=== PATIENT | male | born 1960 | race Caucasian/White ===

== ENCOUNTER → 2021-05-22 12:23 | Outpatient (CLI) | payer OTHER, SELFPAY ==
--- NOTE | 2021-05-22 12:26 | CT_ITS ---
PROCEDURE: CT CHEST WO CON CLINICAL INDICATION: OTHER FATIGUE Dyspnea, smoker COMPARISON: No exams were available for comparison TECHNIQUE: Axial images obtained with sagittal and coronal reformats. All CT scans at the facility use one or more dose reduction, viz: automated exposure control, ma/kV adjustment per patient size (including targeted exams where dose is matched to indication, i.e. head), or iterative reconstruction technique. FINDINGS: HEART AND MEDIASTINAL STRUCTURES: There are coronary artery calcifications and aortic valve calcifications. There is very minimal thickening of the pericardium anteriorly. No mediastinal or hilar mass or adenopathy. Mild nonspecific thickening of this distal esophagus and GE junction. LUNGS AND PLEURAL SPACES: COPD changes with hyperinflation and attenuation of the peripheral pulmonary vessels. No suspicious nodules. No infiltrates or effusions. BONY STRUCTURES: Mild degenerative changes midthoracic spine. UPPER ABDOMEN: Multiple hepatic hypodensities are present the largest in the left hepatic lobe at 10 mm. There is a 5 mm hypodensity left hepatic lobe laterally. The other hypodensities are 1-3 mm. These could be due to hepatic cysts or hemangiomas. ADDITIONAL FINDINGS: Mild dilatation of the mid abdominal aorta at 3 cm. The abdominal aorta is incompletely imaged. IMPRESSION: 1. Coronary artery calcifications and aortic valve calcification. 2. COPD. No pulmonary nodules, infiltrates or effusions apparent. 3. Multiple small hepatic hypodense lesions the largest in the left hepatic lobe at 10 mm. These may be due to small cysts and/or hemangiomas. Suggest CT abdomen with hemangioma protocol without and with contrast 4. Dilatation of the mid abdominal aorta at 3 cm. The aorta is incompletely imaged and could also be evaluated with follow-up CT of the abdomen. Dictated by: Pj Whitlock MD 05/23/2021 09:11 Pj Whitlock MD in [facility] 05/23/2021 09:11
== END ==
PROVIDERS: PCP Nurse Practitioner Family; Visit Provider Nurse Practitioner Family
DX: R53.83 Other fatigue (principal); Z72.0 Tobacco use
CPT/HCPCS: 71250

== ENCOUNTER → 2021-06-23 08:12 | Outpatient (CLI) | payer OTHER, SELFPAY ==
--- NOTE | 2021-06-23 08:23 | CT_ITS ---
PROCEDURE: CT ABDOMEN PELVIS WO/W CON CLINICAL INDICATION: HEMANGIOMA OF INTRA ABD STRUCTURES COMPARISON: CT CT CHEST WO CON from 05/22/2021 TECHNIQUE: IV Contrast: 75ML Isovue 370. Pre and post enhanced dynamic images are obtained. Oral Contrast None Axial images obtained with sagittal and coronal reformats. All CT scans at the facility use one or more dose reduction, viz: automated exposure control, ma/kV adjustment per patient size (including targeted exams where dose is matched to indication, i.e. head), or iterative reconstruction technique. FINDINGS: Multiple small hepatic hypodensities are present. Largest is in the left hepatic lobe segment 4A measuring 12 mm. These do not demonstrate enhancement patterns hemangiomas and likely related to cysts. No enhancing lesions are evident. There are 2 small hypodensities of the spleen 1 medially at 3 mm in 1 laterally at 4 mm and may be due to small cyst or hemangiomas. These are too small to categorize. The adrenal glands, pancreas, and kidneys have an unremarkable appearance. There is a moderate amount of plaque within the abdominal aorta inferior to the level of the renal arteries with mild dilatation of the aorta at 3 cm transverse and 3.2 cm AP. Along the left side of the abdominal aorta at the L3 level there is a small focal protrusion which measures 7 mm transverse suggesting a small thrombosed saccular aneurysm. This could also be related to sub adjacent lymph node. Continued follow-up suggested to confirm stability. There is occlusion of the left common iliac artery with reconstitution of the left external iliac artery distally and the left internal iliac artery in its mid aspect. There is dilatation of the proximal aspect of the right common iliac artery at 1.7 cm. No evidence of retroperitoneal hemorrhage. No intestinal obstruction or free air. There is colonic diverticulosis. No evidence of diverticulitis. The prostate is enlarged at 5.9 x 4 cm. Prior appendectomy. No acute bony anomaly. IMPRESSION: 1. Multiple hepatic hypodensities without enhancement consistent with cysts with at least 2 small hypodensities of the spleen 3 and 4 mm too small to categorize and also may be due to cysts or small hemangiomas.. 2. Mild fusiform dilatation of the infrarenal abdominal aorta up to 3.2 cm with moderate amount of mural thrombus. Possible small saccular component of the aneurysm noted at L3 versus overlying sub adjacent lymph node. 3. Occluded left common iliac artery with reconstitution of the distal aspect of the left external iliac artery and mid left internal iliac artery. Dictated by: Pj Whitlock MD 06/24/2021 06:19 Pj Whitlock MD in [facility] 06/24/2021 06:19
[2021-06-23 08:59] LABS: Blood Urea Nitrogen 14 mg/dl (9-20); Estimated Glomerular Filt Rate 76 ml/min (>60); GFR (African American) 92 ML/MIN (>60)
== END ==
PROVIDERS: PCP Nurse Practitioner Family; Visit Provider Nurse Practitioner Family
DX: D18.03 Hemangioma of intra-abdominal structures (principal)
CPT/HCPCS: 36415; 74178; 82565; 84520; Q9967

== ENCOUNTER → 2021-08-19 08:53 | Outpatient (CLI) | payer OTHER, SELFPAY ==
--- NOTE | 2021-08-19 08:57 | CA_ITS ---
APPROVED REPORT Professional Architect: WOLF Laterality: Bilateral Study Quality: Good, Due to Patient movement. Risk Factors Hypertension: Hyperlipidemia Smoking Doppler Spectral Velocity Analysis ECA (R) 124.20/22.30 cm/s ECA (L) 140.50/30.00 cm/s dICA (R) 56.50/19.70 cm/s dICA (L) 103.30/34.40 cm/s Louann (R) 72.00/18.80 cm/s Louann (L) 111.70/35.30 cm/s pICA (R) 112.20/19.70 cm/s pICA (L) 87.30/29.50 cm/s dCCA (R) 90.00/24.00 cm/s dCCA (L) 85.70/19.70 cm/s pCCA (R) 98.50/20.60 cm/s pCCA (L) 110.50/22.30 cm/s Vert (R) 63.40/15.40 cm/s Vert (L) 50.10/15.70 cm/s ICA/CCA 1.25 ICA/CCA 1.30 Findings Duplex evaluation demonstrates antegrade flow of the bilateral Vertebral Arteries. Duplex evaluation demonstrates stenosis of the right proximal internal carotid artery <20% with PSV <140 cm/sec, EDV <100 cm/sec, and IC/CC Ratio <4.0. Duplex evaluation demonstrates stenosis of the left proximal internal carotid artery <20% with PSV <140 cm/sec, EDV <100 cm/sec, and IC/CC Ratio <4.0. Conclusion Duplex evaluation demonstrates antegrade flow of the bilateral Vertebral Arteries. Duplex evaluation demonstrates stenosis of the right proximal internal carotid artery <20% with PSV <140 cm/sec, EDV <100 cm/sec, and IC/CC Ratio <4.0. Duplex evaluation demonstrates stenosis of the left proximal internal carotid artery <20% with PSV <140 cm/sec, EDV <100 cm/sec, and IC/CC Ratio <4.0. Electronically signed by : Pj Whitlock MD 08/19/2021 18:29:42
--- NOTE | 2021-08-19 08:57 | CA_ITS ---
APPROVED REPORT EXAM: Comprehensive 2D, Doppler, and color-flow Echocardiogram Collector Of Internal Revenue: Janae Ocampo, KERI, RVS Ht: 5 ft 8 in Wt: 185lbs BSA: 1.98 HR: 73 bpm BP: 150/80 mmHg Indications: Smoker, HTN, HLD, Fatigue, dizziness, abn chest CT, New MÉNDEZ 2D Dimensions IVSd 1.16 cm LVEF (Visual) 30.00 % PWd 0.78 cm LA Volume 46.70 mL LVDd 7.61 cm LA Volume Index 23.70 mL/m2 (M/F) 16-34 LVDs 7.41 cm Aortic Root 3.03 cm Left Atrium 3.31 cm LVOT 2.19 cm (M/F) 1.5-2.5 M-Mode Dimensions LA Diam 3.62 cm (1.9-4.0) LVDd 7.74 cm (3.5-5.7) Ao Diam 3.37 cm (2.0-3.7) LVDs 6.29 cm (3.5-5.7) EF (Teich) 37.40% EPSs 4.77 cm FS 18.70% EDV (Teich) 320.10 mL TAPSE 2.10 (<1.7) ESV (Teich) 200.50 mL LV Diastology E Decel Time 333.00 (160-240 msec) E/A Ratio 0.47 MED E' 3.90 (< 7 cm/sec) MED A' 6.80 cm/s E'/MED E' Ratio 12.28 (>14) LAT E' 4.00 (<10 cm/sec) LAT A' 8.30 cm/s E/LAT E' Ratio 11.97 (>14) Aortic Valve LVOT Max 76.00 (70-110 cm/s) LVOT VTI 12.03 cm AoV [place]. 232.00 (50-130 cm/s) AO Peak GR. 21.60 mmHg AO Mean GR. 10.30 (<5 mmHg) AO VTI 38.57 (18-25 cm) SERVANDO (VTI) 1.17 (2.5-4.5 cm2) Mitral Valve MV A Velocity 101.00 (40-130 cm/s) E/A Ratio 0.47 MV Decel. Time 333.00 (160-240 ms) Tricuspid Valve TR P. Velocity 169.00 cm/s RAP Estimate 10.00 mmHg RVSP 21.40 mmHg Left Ventricle Left atrium is mildly enlarged, left ventricle is moderately dilated, severe reduced left ventricular systolic function, visually estimated ejection fraction approximately 30%, there is marked hypo to akinesis involving the basal septum, inferior basal and inferior wall. Grade 1 diastolic dysfunction seen with tissue Doppler evidence of raise left atrial pressure. Right Ventricle Right atrium and right ventricle are normal size and contractility. Aortic Valve Aortic valve is thickened and calcified, based on Doppler velocities aortic stenosis is likely mild. There is no significant aortic insufficiency. Mitral Valve Mitral inflow velocity within normal range, there is no mitral stenosis, there is mild mitral regurgitation. Tricuspid Valve Tricuspid valve grossly normal, there is mild tricuspid regurgitation, tricuspid regurgitation jet velocity is inadequate for calculation of the right ventricular systolic pressure. Pulmonic Valve Pulmonic valve is poorly visualized. Great Vessels Aortic root is normal size. Inferior vena cava is normal size with normal inspiratory collapse. Pericardium No significant pericardial effusion noted. Conclusion 1. Mildly enlarged left atrium, dilated left ventricle, severely reduced left ventricular systolic function, visually estimated ejection fraction 30% with multiple segmental wall motion abnormality described above. Grade 1 diastolic dysfunction seen with tissue Doppler evidence of raise left atrial pressure. 2. Thickened and calcified aortic valve with likely mild aortic stenosis 3. Mild mitral and tricuspid regurgitation. 4. Inferior vena cava is normal size with normal inspiratory collapse. Electronically signed by : Cipriano Whitehead MD 08/20/2021 13:25:07
[2021-08-19 15:39] LABS: Chloride 104 mmol/L (98-107); Sodium 140 mmol/L (136-145)
[2021-08-19 15:40] LABS: Potassium 4.3 mmoL/L (3.5-5.1)
[2021-08-19 15:42] LABS: Blood Urea Nitrogen 12 mg/dl (9-20); Estimated Glomerular Filt Rate 86 ml/min (>60); GFR (African American) 103 ML/MIN (>60)
[2021-08-19 15:43] LABS: Anion Gap 10.3 mEq/L (5-15); Basophils # 0.1 K/mm3 (0-0.2); Basophils % 0.7 % (0.1-2.0); Carbon Dioxide 30 mmol/L (22.0-30.0); Eosinophils # 0.2 K/mm3 (0.0-0.4); Eosinophils % 1.6 % (0.1-12.0); Glucose 92 mg/dl (74-100); Hematocrit 52.4 % (42.0-52.0); Lymphocytes # 2.8 K/mm3 (0.7-4.5); Lymphocytes % 26.5 % (10-50); Mean Corpuscular HGB Conc 32.4 g/dL (31.8-35.4); Mean Corpuscular Hemoglobin 29.9 pg (27.0-31.2); Mean Corpuscular Volume 92.3 fl (80-94); Mean Platelet Volume 9.5 fl (7.4-10.4); Monocytes # 0.8 K/mm3 (0.1-1.0); Monocytes % 7.2 % (1.7-9.3); Neutrophils # 6.8 K/mm3 (1.8-7.8); Platelet Count 366 K/mm3 (142-424); Red Blood Count 5.67 M/mm3 (4.60-6.20); Red Cell Distribution Width 15.6 % (11.5-17.5); White Blood Count 10.6 K/mm3 (4.8-10.8)
== END ==
PROVIDERS: Urology; PCP Nurse Practitioner Family; Visit Provider Nurse Practitioner Family
DX: Z01.812 Encounter for preprocedural laboratory examination (principal); Z11.52 Encounter for screening for COVID-19; R42 Dizziness and giddiness; I25.10 Atherosclerotic heart disease of native coronary artery without angina pectoris; I10 Essential (primary) hypertension; M79.10 Myalgia, unspecified site; R53.83 Other fatigue
CPT/HCPCS: 36415; 80048; 85025; 93306; 93880; C9803; U0003; U0005

== ENCOUNTER → 2021-08-19 14:56 | Outpatient (CLI) | payer OTHER, SELFPAY | PROVIDERS: Visit Provider Urology | DX: Z20.822 Contact with and (suspected) exposure to COVID-19 (principal) | CPT/HCPCS: 36415; 80048; 85025; C9803; U0003; U0005 ==

== ENCOUNTER 2021-08-20 09:48 | Day surgery (SDC) | payer OTHER, SELFPAY ==
[2021-08-20] VITALS (22 sets, daily range): BP systolic 100–151; BP diastolic 58–105; PULSE 60–90; RESP 13–92; O2SAT 91–97; BMI 27.8
--- NOTE | 2021-08-20 | IR_ITS ---
APPROVED REPORT Patient Location: Outpatient PROCEDURES Left heart catheterization Left ventriculogram Selective coronary angiogram Left femoral arterial access Catheter placed in the abdominal aorta Abdominal aortography with bilateral iliofemoral angiography Attempted angioplasty of the left chronically occluded common iliac artery INDICATION Ischemic cardiomyopathy, Systolic congestive heart failure ejection fraction 25%, Occluded left common iliac artery, Peripheral artery disease, No abdominal aortic aneurysm Informed consent was obtained prior to the procedure. COMPLICATIONS NONE Estimated Blood Loss: LESS THAN 10 ML TECHNIQUE 1% lidocaine used anesthetize right groin the right coronary successfully the center technique and a 4 Israeli sheath this patient right femoral artery. A catheter cannot easily traverse the iliofemoral vessels therefore an advantage wire and the JR4 catheter used to negotiate through the aneurysmal stenotic dilatation. Angiography was performed in the common iliac artery. Following this a JL4 JR4 catheter used to perform left heart catheterization left ventriculogram and selective coronary angiogram. A wire exchange was used in between the JR4 and the JL4. At the end of the diagnostic heart cath the wire was placed back in the abdominal aorta and a pigtail catheter was advanced. Abdominal aortography with iliofemoral angiography was performed. Following this the left femoral artery was accessed via the Salinger technique and a JR4 catheter was advanced through the occlusion into the ostial segment of the left common iliac artery. After the wire would not easily reenter the lumen the 4 Israeli sheath in the right groin was upsized to a 5 Israeli sheath and a Sos Omni catheter was placed in abdominal aorta and attempts were made to push through the occlusion. After several minutes it was decided this vessel was 2 high risk and complex to proceed with percutaneous intervention especially in the setting of his decompensated heart condition. At this point it was abandoned the apparatus was removed good hemostasis was achieved using manual pressure in the left groin and the patient transfer the postop putting a stable addition for arterial sheath removal ANGIOGRAPHIC RESULTS The left main artery Normal The left anterior descending artery Has proximal long 30% stenoses with the remaining LAD being large and wrapping the apex The circumflex artery Is nondominant and proximally occluded and fills via a large Kugel collateral from the right coronary artery as well as collaterals from the LAD The right coronary artery Is dominant and proximally occluded. The distal vessel fills via right to right collaterals however the posterior descending artery fills via left to right collaterals from the LAD. A large proximal Kugel collateral supplies flow to the circumflex artery The PORRAS ventriculogram reveals Severely dilated ejection fraction 2025% The left ventricular end-diastolic pressure 30 mmHg The infrarenal abdominal aorta is aneurysmal and severely atheromatous The right common iliac artery has an ostial 80% stenosis followed by an aneurysmal dilatation with diffuse atheromatous plaque Left common iliac artery is ostially occluded and fills via large collaterals which collateralized through the left external iliac artery IMPRESSION Coronary disease as described above Severe LV dysfunction Elevated LVEDP Aortoiliac disease as described above PLAN 1. At this time I do not recommend surgery or percutaneous intervention for the heart. Patient is nicely collateralized in the LAD most importantly is minimally diseased. 2. Maximize medical management and provide standar
--- NOTE | 2021-08-20 14:06 | SW/DCPLANNER ---
I have provided heart cath staff (Kayleigh/Jaja) with information regarding [facility] once patient is medically stable to discharge home. Jaja has stated that she will arrange this once patient is ready.
== END 2021-08-20 16:07 | disposition home or self-care (01) ==
LOC: CATHLAB 09:50 → 2ND 09:54
PROVIDERS: PCP Nurse Practitioner Family; Visit Provider Internal Medicine
DX: I25.5 Ischemic cardiomyopathy (principal); I77.1 Stricture of artery; I42.0 Dilated cardiomyopathy; I35.9 Nonrheumatic aortic valve disorder, unspecified; I25.10 Atherosclerotic heart disease of native coronary artery without angina pectoris; I25.84 Coronary atherosclerosis due to calcified coronary lesion; I71.4 Abdominal aortic aneurysm, without rupture; F17.210 Nicotine dependence, cigarettes, uncomplicated; Z79.899 Other long term (current) drug therapy; I74.5 Embolism and thrombosis of iliac artery; I24.0 Acute coronary thrombosis not resulting in myocardial infarction; I50.23 Acute on chronic systolic (congestive) heart failure
CPT/HCPCS: 36246; 75625; 75716; 93458; 99152; 99153; C1725; C1769; C1894; J1644; Q9966; Q9967

== ENCOUNTER → 2023-05-17 07:45 | Outpatient (CLI) | payer OTHER, SELFPAY | PROVIDERS: PCP Nurse Practitioner Family; Visit Provider Nurse Practitioner Family | DX: R06.00 Dyspnea, unspecified (principal); I25.10 Atherosclerotic heart disease of native coronary artery without angina pectoris; I25.5 Ischemic cardiomyopathy; I35.0 Nonrheumatic aortic (valve) stenosis; I42.0 Dilated cardiomyopathy; I50.22 Chronic systolic (congestive) heart failure; I65.23 Occlusion and stenosis of bilateral carotid arteries; I73.9 Peripheral vascular disease, unspecified; Z72.0 Tobacco use | CPT/HCPCS: 93306 ==

== ENCOUNTER 2023-06-22 16:02 | Observation (INO) | payer OTHER, SELFPAY ==
[2023-06-22] VITALS (20 sets, daily range): BP systolic 95–200; BP diastolic 60–117; PULSE 57–115; RESP 16–21; TEMP 36.4–36.8; O2SAT 95–100; BMI 29.3; BMI 28.4
--- NOTE | 2023-06-22 07:14 | IR_ITS ---
APPROVED REPORT Patient Location: Outpatient PROCEDURES Selective coronary angiogram Drug-eluting stent deployment to the proximal LAD Intravascular ultrasound the proximal ID INDICATION Ischemic cardiomyopathy, New onset angina pectoris, Complex IVUS guided percutaneous intervention, Informed consent was obtained prior to the procedure. COMPLICATIONS NONE Estimated Blood Loss: LESS THAN 10 ML TECHNIQUE One percent lidocaine used to anesthetize the right anterior aspect of the wrist. The right radial artery was accessed via the Seldinger technique. A 6 Kittitian sheath was placed in the right radial artery. 2.5 mg of Verapamil, 800 mcg of nitroglycerin, 1mg Lidocaine and 5000 U Heparin were given through the arterial sheath. The papa catheter was also used to perform selective coronary angiogram. At the end of the diagnostic cardiac catheterization therapeutic heparin was administered giving a therapeutic ACT and the guide catheter was placed in left main artery followed by Choice PT extra-support wire being placed on the LAD. A 3.5 x 26 mm [place] frontier stent was deployed at 20 chapis reducing the stenosis to 0% by angiography. Because this was a complex angiogram and there is a mortality benefit with IVUS guidance it was decided to perform intravascular ultrasound. Intravascular ultrasound was advanced which demonstrated nice apposition of the stent to the plaque however the proximal and midportion of the stent was slightly under dilated. Because of this a 4 mm x 12 mm noncompliant balloon was placed in the proximal and midportion and deployed at 24 chapis to post dilate. TONIA-3 flow was present before and after the procedure. At the end the procedure the apparatus was removed the sheath was removed good hemostasis was achieved using TR banding patient was transferred to the postop putting in stable ANGIOGRAPHIC RESULTS The left main artery Normal The left anterior descending artery Proximal 50 to 60% eccentric calcified stenosis. The remaining LAD is widely patent free of disease and wraps the apex The circumflex artery Is nondominant and proximally occluded. A first second and third obtuse marginal artery is collateralized from both the LAD and from a right coronary artery Kugel collateral. The right coronary artery Is a nondominant vessel and proximally subtotally occluded. Bridging collaterals supply the distal right coronary artery. A Kugel collateral supplies the terminal obtuse marginal artery off the circumflex artery The PORRAS ventriculogram reveals Not performed The left ventricular end-diastolic pressure Not measured IMPRESSION Severe stenosis in the proximal LAD which was equivalent to a left main artery stenosis based on the collateralization to the circumflex artery Successful stenting of the proximal LAD severe disease reduced to 0% with 1 drug-eluting stent Chronically occluded circumflex artery and right coronary as described above PLAN 1. Dual antiplatelet therapy 2. Standard therapy for systolic heart failure 3. LDL less than 55 to be achieved with high intensity statin 4. Avoidance of tobacco products 5. Risk factor modification 6. Cardiac rehabilitation Electronically signed by : James Doe MD 06/22/2023 13:59:06
[2023-06-22 10:36] LABS: Basophils # 0.1 K/mm3 (0-0.2); Basophils % 0.6 % (0.1-2.0); Eosinophils # 0.2 K/mm3 (0.0-0.4); Eosinophils % 2.4 % (0.1-12.0); Hematocrit 56.4 % (42.0-52.0); Lymphocytes % 24.2 % (10-50); Mean Corpuscular HGB Conc 31.9 g/dL (31.8-35.4); Mean Corpuscular Hemoglobin 28.8 pg (27.0-31.2); Mean Corpuscular Volume 90.4 fl (80-94); Mean Platelet Volume 9.3 fl (7.4-10.4); Monocytes # 0.5 K/mm3 (0.1-1.0); Neutrophils # 5.6 K/mm3 (1.8-7.8); Neutrophils % 66.9 % (37.0-80.0); Platelet Count 441 K/mm3 (142-424); Red Blood Count 6.24 M/mm3 (4.60-6.20); Red Cell Distribution Width 15.1 % (11.5-17.5); White Blood Count 8.3 K/mm3 (4.8-10.8)
[2023-06-22 10:44] LABS: Chloride 106 mmol/L (98-107); Potassium 4.1 mmoL/L (3.5-5.1); Sodium 142 mmol/L (136-145)
[2023-06-22 10:47] LABS: Blood Urea Nitrogen 19 mg/dl (9-20); Creatinine Clearance Estimated 92 mL/min (50-200); Estimated Glomerular Filt Rate 75 ml/min (>60); GFR (African American) 91 ML/MIN (>60)
[2023-06-22 10:48] LABS: Anion Gap 14.1 mEq/L (5-15); Calcium 10.5 mg/dl (8.4-10.2); Carbon Dioxide 26 mmol/L (22.0-30.0); Glucose 100 mg/dl (74-100)
--- NOTE | 2023-06-22 15:11 | HMH.PHACL ---
PHA Family Development Extension Specialist Discharge Med Deburring And Tooling Machine Operator: Nathan Post has received discharge medication counseling on the following medications: -ASPIRIN (ON PREVIOUSLY, NO QUESTIONS) -ATORVASTATIN (ON PREVIOUSLY, NO QUESTIONS) -CARVEDILOL (ON PREVIOUSLY, NO QUESTIONS) -ENTRESTO (ON PREVIOUSLY, NO QUESTIONS) -BRILINTA (BLOOD THINNER, TWICE DAILY, SOB POSSIBLE, BLEED/BRUISE RISK, BLEED LOCATION/APPEARANCE, BUMP HEAD = GO TO ER TO RULE OUT BLEED) PATIENT VERBALIZED NO QUESTIONS AT THIS TIME.
[2023-06-22 15:30] LABS: CATHL Activated Clotting Time 360 SEC (74-125)
--- NOTE | 2023-06-22 16:06 | EXP.HP ---
History of Present Illness *Admission Date: 06/22/23 *Reason for visit:: shortness of breath *History of present illness: Mr. Post is a 62 year old male with a past medical history of AAA, aortic stenosis, carotid artery stenosis, cad, PAD, diastolic chf, htn and hld. He had an outpatient left heart catheterization today which revealed severe stenosis in the proximal LAD and chronically occluded circumflex and right coronary arteries. One drug eluting stent was placed in the proximal LAD. The patient was given Brilinta and subsequently developed shortness of breath but SpO2 has been within normal limits on room air. He denies chest pain. ANGIOGRAPHIC RESULTS The left main artery Normal The left anterior descending artery Proximal 50 to 60% eccentric calcified stenosis. The remaining LAD is widely patent free of disease and wraps the apex The circumflex artery Is nondominant and proximally occluded. A first second and third obtuse marginal artery is collateralized from both the LAD and from a right coronary artery Kugel collateral. The right coronary artery Is a nondominant vessel and proximally subtotally occluded. Bridging collaterals supply the distal right coronary artery. A Kugel collateral supplies the terminal obtuse marginal artery off the circumflex artery The PORRAS ventriculogram reveals Not performed The left ventricular end-diastolic pressure Not measured IMPRESSION Severe stenosis in the proximal LAD which was equivalent to a left main artery stenosis based on the collateralization to the circumflex artery Successful stenting of the proximal LAD severe disease reduced to 0% with 1 drug-eluting stent Chronically occluded circumflex artery and right coronary as described above [facility] Disclaimer: The information contained in this section may have been updated after the patient was seen, as this information can be updated by other users. Medical History Abdominal aortic aneurysm (AAA) 3.0 cm to 5.5 cm in diameter in male Aortic stenosis Aortic valve calcification Carotid artery stenosis Congestive heart failure Coronary artery calcification Coronary artery disease Diastolic dysfunction Dilated cardiomyopathy Dyspnea Hyperlipidemia Hypertension Ischemic cardiomyopathy PAD (peripheral artery disease) Occluded left common iliac artery with reconstitution of the distal aspect of the left external iliac artery and mid left internal iliac artery. He was told this would be best managed medically. Restless sleeper Snoring Family History (Updated 06/22/23 @ 16:54 by Jen Paula RN) Other No significant family history Social History (Updated 06/22/23 @ 16:22 by Renita Cordon RN) Smoking Status: Current every day smoker tobacco type: cigarettes packs per day: 1 second hand exposure: Yes alcohol intake: never substance use type: denies use current occupational status: unemployed and retired Travel in the last 8 weeks: Inside the [place] household members: spouse housing: house number of children: 1 current occupational exposures/hazards: No caffeine: No Review of Systems Review of Systems Review of systems:: pertinent systems reviewed and negative unless documented below *Cardiovascular Cardiovascular: Reports dyspnea *Respiratory Respiratory: Reports dyspnea Psychiatric Psychiatric: Reports anxiety Meds Home Medications and Allergies Home Medications Medication Instructions Recorded Confirmed Type aspirin 81 mg chewable tablet 81 mg PO DAILY heart #30 tabs 04/08/22 06/22/23 Rx atorvastatin 20 mg tablet See Rx Instructions .Route 06/22/23 06/22/23 History .COMPLEX cholesterol carvedilol 6.25 mg tablet (Coreg) 6.25 mg PO BID HTN 06/22/23 06/22/23 History clopidogrel 75 mg tablet 75 mg PO DAILY #30 tabs 06/22/23 Rx empagliflozin 10 mg tablet 10 mg PO DAILY antidiabetic 06/22/23 06/22/23 History (Vu
--- NOTE | 2023-06-22 16:39 | PC.NURSE ---
arrived by w/c from hemodialysis lab technician
--- NOTE | 2023-06-22 17:15 | PC.NURSE ---
CALLED PAPER SORTER ABOUT ABNORMAL ECG STRIP. DR MCKENZIE NOTIFIED WELL. THEY STATED HE HAS BEEN DOING THIS SINCE RECEIVING THE BRILINTA AFTER HIS HEART CATH. NO NEW ORDERS.
--- NOTE | 2023-06-22 20:39 | PC.NURSE ---
patient c/o nausea. zofran iv ordered but refused.
[2023-06-23] VITALS: BP 142/75; PULSE 103; PULSE 91; RESP 18; TEMP 36.7; O2SAT 98
--- NOTE | 2023-06-23 00:59 | PC.NURSE ---
DANDRE Buckley SCIENTIFIC INFORMATICS LEADER NOTIFIED RE PATIENT,S BEHAVIOR. PATIENT FOUND ON HIS KNEES BENT OVER THE BED AND SOMETIMES OVER THE SEAT OF THE RECLINER. SAYS HE DOESNT FEEL GOOD. C/O NAUSEA YET REFUSED TO TAKE NAUSEA MEDICINE HE THINKS WE ARE GIVING HIM TO MUCH MEDICATION. PATIENT SAYS HE HASNT FELT WELL SINCE HE REACTED TO BRILENTA. ALSO REFUSED HIS COREG. DAY SHIFT NURSE ALSO HAD REPORTED THIS BEHAVIOR TO ME. DRSG TO RIGHT RADIAL C/D/I. CONTINUES TO HAVE MULTIFOCAL PVCs.
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
[2023-06-23 04:00] VITALS: BP 110/69; PULSE 77; PULSE 80; RESP 18; TEMP 36.5; O2SAT 97; BMI 29.0
[2023-06-23 06:32] LABS: Basophils % 0.2 % (0.1-2.0); Eosinophils # 0.1 K/mm3 (0.0-0.4); Eosinophils % 0.4 % (0.1-12.0); Hematocrit 53.9 % (42.0-52.0); Hemoglobin 17.4 g/dL (14.1-18.0); Lymphocytes # 1.7 K/mm3 (0.7-4.5); Lymphocytes % 12.6 % (10-50); Mean Corpuscular HGB Conc 32.3 g/dL (31.8-35.4); Mean Corpuscular Volume 89.9 fl (80-94); Mean Platelet Volume 9.5 fl (7.4-10.4); Monocytes # 1.1 K/mm3 (0.1-1.0); Monocytes % 7.7 % (1.7-9.3); Neutrophils # 10.8 K/mm3 (1.8-7.8); Neutrophils % 79.1 % (37.0-80.0); Platelet Count 458 K/mm3 (142-424); Red Blood Count 5.99 M/mm3 (4.60-6.20); Red Cell Distribution Width 15.4 % (11.5-17.5); White Blood Count 13.7 K/mm3 (4.8-10.8)
[2023-06-23 06:42] LABS: Chloride 104 mmol/L (98-107); Potassium 3.5 mmoL/L (3.5-5.1); Sodium 136 mmol/L (136-145)
[2023-06-23 06:45] LABS: Blood Urea Nitrogen 16 mg/dl (9-20); Carbon Dioxide 21 mmol/L (22.0-30.0); Creatinine Clearance Estimated 92 mL/min (50-200); Estimated Glomerular Filt Rate 85 ml/min (>60); GFR (African American) 103 ML/MIN (>60)
[2023-06-23 06:46] LABS: Calcium 10.2 mg/dl (8.4-10.2); Glucose 97 mg/dl (74-100)
[2023-06-23 06:47] LABS: Anion Gap 14.5 mEq/L (5-15)
--- NOTE | 2023-06-23 07:16 | HMH.PHAINT1 ---
Pharmacy Intervention Comments: Medication history complete, medications verified through fill history and discharge list from stent procedure yesterday. - Sandy Hope, PharmD Candidate 2023
[2023-06-23 07:47] VITALS: BP 124/64; PULSE 88; RESP 18; TEMP 37.1; O2SAT 97; BMI 29.0
[2023-06-23 08:00] VITALS: PULSE 90
--- NOTE | 2023-06-23 08:30 | EXP.DC.SUM ---
General Admission date:: 06/22/23 Discharge date: 06/23/23 HPI HPI HPI: Mr. Post is a 62 year old male with a past medical history of AAA, aortic stenosis, carotid artery stenosis, cad, PAD, diastolic chf, htn and hld. He had an outpatient left heart catheterization today which revealed severe stenosis in the proximal LAD and chronically occluded circumflex and right coronary arteries. One drug eluting stent was placed in the proximal LAD. The patient was given Brilinta and subsequently developed shortness of breath but SpO2 has been within normal limits on room air. He denies chest pain. SBP increased to 230 but has come down to 180 after the patient received doses of Valium and Hydralazine. ANGIOGRAPHIC RESULTS The left main artery Normal The left anterior descending artery Proximal 50 to 60% eccentric calcified stenosis. The remaining LAD is widely patent free of disease and wraps the apex The circumflex artery Is nondominant and proximally occluded. A first second and third obtuse marginal artery is collateralized from both the LAD and from a right coronary artery Kugel collateral. The right coronary artery Is a nondominant vessel and proximally subtotally occluded. Bridging collaterals supply the distal right coronary artery. A Kugel collateral supplies the terminal obtuse marginal artery off the circumflex artery The PORRAS ventriculogram reveals Not performed The left ventricular end-diastolic pressure Not measured IMPRESSION Severe stenosis in the proximal LAD which was equivalent to a left main artery stenosis based on the collateralization to the circumflex artery Successful stenting of the proximal LAD severe disease reduced to 0% with 1 drug-eluting stent Chronically occluded circumflex artery and right coronary as described above Hospital Course Hospital Course Hospital Course: #shortness of breath #hypertensive urgency #anxiety #CAD The patient's dyspnea was thought to be an adverse reaction to Brilinta. He was monitored overnight with continuous cardiac monitoring. He is to take plavix and aspirin. The dose of his atorvastatin was increased from 20 to 40mg daily. By the following morning his dyspnea completely resolved and his blood pressures normalized. Exam Data for Last 24 hours Vital signs and Labs for Last 24 Hours: Temp Pulse Resp BP Pulse Ox O2 Del Method 98.7 F 88 18 124/64 97 Room Air 06/23/23 07:47 06/23/23 07:47 06/23/23 07:47 06/23/23 07:47 06/23/23 07:47 06/23/23 07:47 Laboratory Results - last 24 hr 06/22/23 10:18: WBC 8.3, RBC 6.24 H, Hgb 18.0, Hct 56.4 H, MCV 90.4, MCH 28.8, MCHC 31.9, RDW 15.1, Plt Count 441 H, MPV 9.3, Neut % (Auto) 66.9, Lymph % (Auto) 24.2, [place] % (Auto) 6.0, Eos % (Auto) 2.4, Baso % (Auto) 0.6, Neut # (Auto) 5.6, Lymph # (Auto) 2.0, [place] # (Auto) 0.5, Eos # (Auto) 0.2, Baso # (Auto) 0.1, Sodium 142, Potassium 4.1, Chloride 106, Carbon Dioxide 26, Anion Gap 14.1, BUN 19, Creatinine 1.00, Estimated Creat Clear 92, Estimated GFR 75, Est GFR ( Amer) 91, Glucose 100, Calcium 10.5 H 06/22/23 13:31: Activated Clotting Time 360 H* 06/23/23 05:35: WBC 13.7 H D, RBC 5.99, Hgb 17.4, Hct 53.9 H, MCV 89.9, MCH 29.0, MCHC 32.3, RDW 15.4, Plt Count 458 H, MPV 9.5, Neut % (Auto) 79.1, Lymph % (Auto) 12.6, [place] % (Auto) 7.7, Eos % (Auto) 0.4, Baso % (Auto) 0.2, Neut # (Auto) 10.8 H, Lymph # (Auto) 1.7, [place] # (Auto) 1.1 H, Eos # (Auto) 0.1, Baso # (Auto) 0.0, Sodium 136, Potassium 3.5, Chloride 104, Carbon Dioxide 21 L, Anion Gap 14.5, BUN 16, Creatinine 0.90, Estimated Creat Clear 92, Estimated GFR 85, Est GFR ( Amer) 103, Glucose 97, Calcium 10.2 I & O for Last 24 hours: Intake & Output 06/20/23 06/21/23 06/22/23 06/23/23 23:59 23:59 23:59 23:59 Intake Total 480 / 480 0 / 0 Output Total 0 / 200 400 / 400 Balance 480 / 280 -400 / -400 Weight 84.85 kg 87.09 kg Constitutional Constitutional: no acute distress *Routine HEENT E
--- NOTE | 2023-06-24 13:39 | CARE MANAGER ---
Contacted patient related to hospital discharge. Patient states that he is doing well. He did change his Atorvastatin and is aware of follow up appointments. Denies questions or concerns. MANUEL Leal
== END 2023-06-23 10:47 | disposition home or self-care (01) ==
LOC: 2ND 16:03
PROVIDERS: Internal Medicine; Admitting Provider Internal Medicine; PCP Nurse Practitioner Family; Visit Provider Internal Medicine
DX: I25.118 Atherosclerotic heart disease of native coronary artery with other forms of angina pectoris; E78.5 Hyperlipidemia, unspecified; I25.5 Ischemic cardiomyopathy; I35.0 Nonrheumatic aortic (valve) stenosis; I42.0 Dilated cardiomyopathy; I25.82 Chronic total occlusion of coronary artery; I11.0 Hypertensive heart disease with heart failure; I50.32 Chronic diastolic (congestive) heart failure
CPT/HCPCS: 36415; 80048; 85025; 85347; 92928; 92978; 93454; 99152; 99153; C1725; C1769; C1876; C9600; G0378; J1644; Q9967

== ENCOUNTER → 2023-07-14 12:23 | Outpatient (CLI) | payer OTHER, SELFPAY ==
[2023-07-14 13:46] VITALS: BMI 29.0
== END ==
PROVIDERS: PCP Nurse Practitioner Family; Visit Provider Nurse Practitioner Family
DX: Z71.3 Dietary counseling and surveillance (principal); R73.03 Prediabetes
CPT/HCPCS: 97802

== ENCOUNTER 2023-10-10 11:39 | Emergency (ER) | payer MEDICARE, OTHER, SELFPAY ==
--- NOTE | 2023-10-10 11:53 | HMH.EDGENADL ---
Discharge Plan Disposition Patient Disposition: Date/Time: 10/10/23 11:49 Clinical Impressions Clinical Impression: Cardiac arrest with ventricular fibrillation, Acute hypoxemic respiratory failure Discharge ED Provider: Claudia Childs General Adult HPI General Stated complaint: arrest Time Seen by Provider: 10/10/23 11:40 History of Present Illness HPI narrative: This patient is a 62-year-old male with extensive cardiac history presenting to the emergency department as a CODE BLUE. EMS was dispatched around 10:30 AM to an unresponsive male, and a bystander had initiated CPR. They arrived on scene around 10:50 AM, at which point they noted the patient initially had the fib and then V. tach. He was defibrillated twice and given 4 rounds of epinephrine while en route. He was intubated with a 7 and half ET tube. After the initial ventricular dysrhythmias, patient had PEA for the rest of transport. No other history is known at this time. Related Data Home Medications Medication Instructions Recorded Confirmed carvedilol 6.25 mg tablet (Coreg) 6.25 mg PO BID High Blood Pressure 06/22/23 07/12/23 empagliflozin 10 mg tablet 10 mg PO DAILY Diabetes 06/22/23 07/12/23 (Jardiance) sacubitril 49 mg-valsartan 51 mg 1 tab PO BID heart failure 06/22/23 07/12/23 tablet (Entresto) aspirin 81 mg chewable tablet 81 mg PO DAILY Heart Health 06/23/23 07/12/23 clopidogrel 75 mg tablet 75 mg PO DAILY Blood Thinner 06/23/23 07/12/23 Previous Rx's Medication Instructions Recorded atorvastatin 20 mg tablet 40 mg PO DAILY #30 tabs 06/23/23 spironolactone 25 mg tablet 25 mg PO DAILY #30 tabs 07/12/23 (Aldactone) Allergies Allergy/AdvReac Type Severity Reaction Status Date / Time ticagrelor [From Brilinta] AdvReac Severe Difficulty Verified 07/12/23 10:24 Breathing [facility] Disclaimer: The information contained in this section may have been updated after the patient was seen, as this information can be updated by other users. Medical History Abdominal aortic aneurysm (AAA) 3.0 cm to 5.5 cm in diameter in male Aortic stenosis Aortic valve calcification Carotid artery stenosis Congestive heart failure Coronary artery calcification Coronary artery disease Diastolic dysfunction Dilated cardiomyopathy Dyspnea Hyperlipidemia Hypertension Ischemic cardiomyopathy PAD (peripheral artery disease) Restless sleeper Snoring Family History Other No significant family history Social History Smoking Status: Current every day smoker tobacco type: cigarettes packs per day: 1 second hand exposure: Yes alcohol intake: never substance use type: denies use current occupational status: unemployed and retired Travel in the last 8 weeks: Inside the [place] household members: spouse housing: house number of children: 1 current occupational exposures/hazards: No caffeine: No ROS Obtained: Yes unobtainable due to mental status Physical Exam General General appearance: in distress Comment: Pale, unresponsive, pulseless. CPR ongoing and BVM ventilation through ET tube Head Head exam: atraumatic and normocephalic Eye Eye exam: Present other (Pupils fixed and dilated) ENT ENT exam: Present other (7-1/[address]) Neck Neck exam: Present normal inspection Chest Chest inspection: Present other (Chest compressions in progress. Breath sounds heard bilaterally with BVM ventilation) Respiratory Respiratory exam: Present other (No spontaneous respirations. BVM ventilation through 7-1/2 ET tube with breath sounds bilaterally) Cardiovascular Cardiovascular exam: Present other (Pulseless) Abdominal Exam Abdominal exam: Present soft Extremities Exam Extremities exam: Present normal inspection Back Exam Back exam: Present normal inspection Neurological Exam Neurological exam: Present other (Unresponsive with GCS of 3. No reflexes) Skin Skin exam: Present mottled and other (Cool, pale, mottled) Medical Decision Making Surendra Inquiry Pt receiving controlled substance: No Medical Decision Narrative: In summary, this patient is a 62-year-old male presenting to the emergency department as a CODE BLUE. CPR in progress upon arrival. Patient has been down for just over an hour upon arrival with epinephrine administered x 4 and defibrillation twice. Upon arrival, patient was in ventricular tachycardia on initial pulse check. He was pulseless. He he was defibrillated at 120 J and he was given 300 mg of amiodarone. Epinephrine was administered here as per ACLS protocol. On subsequent pulse checks, patient had PEA with cardiac standstill on bedside cardiac ultrasound. Patient had been down for over an hour at this time without cardiac activity noted on ultrasound and without intervenable cardiac rhythm on cardiac monitoring, so the decision was made to call time of at 11:49 AM. Family was notified. Fixed Assets Accountant and MALACHI notified. Critical Care Critical Care Time Critical Care Time: No
--- NOTE | 2023-10-10 12:04 | PC.NURSE ---
spoke with pt daughter about pt status at this time. Daughter given to black powder glazing operator for further information
[2023-10-10 13:43] VITALS: BMI 33.9
--- NOTE | 2023-10-10 13:54 | PC.NURSE ---
*late entry* @1135 pt presents via ems per code 500. ems states pt approx down time before their arrival was 15mins. ems states acls initiated at 1100. ems reports insertion of 7.5ett; 24 @ teeth pt arrives with a 20G IV in the left AC. 1135- pt arrives with cpr in route 1137-1 mg of epi given 1138- pulse check; no pulse; MD requests pt to be shocked @ 120j- cpr resumed 1140- amio 300mg given 1140- pulse check; no pulse; compressions resumed 1140- 1mg epi given 1140- 2g of calcium given 1142- pulse check; pea; compressions resumed 1143- 1mg of epi given 1144- pulse check; pea; compressions resumed 1146- 1mg of epi given 1146- pulse check; pea; compressions resumed 1149-1mg of epi given 1149- pulse check; no pulse TOD: 1149
--- NOTE | 2023-10-11 14:52 | P.DN_ITS ---
Pronouncement Note Date and Time of Date of : 10/10/23 Time of : 11:49 PCOD Preliminary cause of : Cardiac arrest with ventricular fibrillation Additional Data Confirmation of : no pulse, no respirations, no heart sounds and pupils fixed and dilated Family: contacted Attending/PCP notified?: Yes Attending physician: Claudia Childs Was code activated?: Yes Autopsy requested?: No deportation examiner notified?: Yes Organ bank notified?: Yes Advance directives: No
== END 2023-10-10 13:54 | disposition expired ==
PROVIDERS: Emergency Provider Emergency Medicine
DX: I46.9 Cardiac arrest, cause unspecified (principal); J96.01 Acute respiratory failure with hypoxia; I71.40 Abdominal aortic aneurysm, without rupture, unspecified; I50.9 Heart failure, unspecified; I11.0 Hypertensive heart disease with heart failure; I73.9 Peripheral vascular disease, unspecified; I25.10 Atherosclerotic heart disease of native coronary artery without angina pectoris; E78.5 Hyperlipidemia, unspecified; F17.210 Nicotine dependence, cigarettes, uncomplicated
CPT/HCPCS: 92950; 99285; J0282